=== PATIENT | male | born 1980 | race Caucasian/White ===

== ENCOUNTER 2020-04-14 14:28 | Outpatient (CLI) | payer SELFPAY ==
--- NOTE | ~2020-04-14 | XR_ITS ---
EXAMINATION: XR elbow RT min 3V INDICATION: Posterior and lateral epicondylitis TECHNIQUE: Four views of the right elbow are obtained. COMPARISON: None available FINDINGS: There is no fracture, dislocation, or subluxation. The bones, soft tissues, and joint space s are normal. IMPRESSION: 1. No acute osseous abnormality. Reviewed, dictated and finalized at location A. [employer]
[2020-04-14 14:41] LABS: Hematocrit 44.2 % (40.0-54.0); Hemoglobin 15.2 g/dL (14.0-18.0); Mean Corpuscular HGB Conc 34.4 g/dL (32.0-36.0); Mean Corpuscular Hemoglobin 34.7 pg (27.0-31.0); Mean Corpuscular Volume 100.9 fL (78.0-102.0); Mean Platelet Volume 9.8 fl (8.7-11.0); Platelet Count Result 155 K/mm3 (150-420); Red Blood Count 4.38 M/mm3 (4.70-6.10); Red Cell Distribution Width 12.2 % (11.6-14.4); White Blood Count 4.7 K/mm3 (4.8-10.8)
[2020-04-14 15:28] LABS: Alanine Aminotransferase 41 U/L (16-63); Albumin Level 4.3 g/dL (3.4-5.0); Alkaline Phosphatase 58 U/L (46-116); Anion Gap 9 mmol/L (8-16); Aspartate Amino Transferase 34 U/L (15-37); Bilirubin,Total 0.3 mg/dL (0.00-1.00); Blood Urea Nitrogen 10 mg/dL (7-18); Calcium 8.9 mg/dL (8.5-10.1); Carbon Dioxide 31 mmol/L (21-32); Chloride 105 mmol/L (98-108); Cholesterol 187 mg/dL (0-200); Estimated Glomerular Filt Rate > 60; Glucose 88 mg/dL (70-99); HDL Direct 80 mg/dL (40-60); LDL Cholesterol Calculated 92 mg/dL (<130); Osmolality Calculated 298 mOsm/kg (285-295); Sodium 145 mmol/L (136-145); Total Protein 7.5 g/dL (6.4-8.2); Triglycerides 77 mg/dL (0-150)
== END 2020-04-14 14:29 | disposition home or self-care (01) ==
LOC: CHSLAB 14:33
PROVIDERS: PCP Family Medicine; Visit Provider Family Medicine
DX: M77.10 Lateral epicondylitis, unspecified elbow (principal); Z00.00 Encounter for general adult medical examination without abnormal findings
CPT/HCPCS: 36415; 73080; 80053; 80061; 85027

== ENCOUNTER 2020-07-23 13:24 | Emergency (ER) | payer OTHER, SELFPAY ==
--- NOTE | 2020-07-23 13:31 | ED.HA ---
HPI - Headache General Chief Complaint: Headache Stated Complaint: migraine Source: patient and RN notes reviewed Mode of arrival: ambulatory History of Present Illness HPI Narrative: This is a 39-year-old male that presented to urgent care complaining of head discomfort. Patient notes that he was outside doing yard work on Monday and afterwards she developed ,what he describes as hot and burning sensation in his head. Patient is concerned of heat exhaustion. Patient denies any weakness, dizziness, confusion, upset stomach, tachycardia, muscle cramps, visual disturbance, double vision SOB, CP, palpitation, extremity numbness, lightheadedness, dizziness, constipation, diarrhea, chills, or fever. Patient notes that he stopped taking his sertraline. Informed patient that abrupt discontinuation of medication could cause possible seizures along with headache. Patient primary care physician is Dr. Wallace, patient was instructed to contact Dr. Wallace for follow-up labs. Patient agreed that he will contact Dr. Wallace. During my assessment patient did not have any facial paralysis, arm weakness or drift any or abnormal speech. MD elicited complaint: headache Related Data Allergies Allergy/AdvReac Type Severity Reaction Status Date / Time No Known Allergies Allergy Mild Verified 07/23/20 13:29 Review of Systems Review of Systems: Narrative: A 14 organ system Review of Systems was performed and pertinent positives included in the HPI, otherwise remaining ROS is negative. [facility] Past Medical History Medical History No active medical problems Surgical History Surgical History Hx of tonsillectomy Family History Family History (Updated 07/23/20 @ 13:32 by CATHRYN Santiago-C) Other Family history non-contributory Social History Social History Smoking packs per day: 0.5 Smoking cigarettes per day: 10.0 Years smoked: 22 Smoking pack-years: 11.00 Smoking status: Current every day smoker Tobacco type: cigarettes Alcohol intake: current Substance use: never Additional occupation/education comments: [employer] Gender identity (if verbalized by the patient): Male Exam Narrative: Exam Narrative: GENERAL: This is a well-nourished, well-developed patient, in no apparent distress. HEAD: normocephalic, atraumatic. EYES: PERRL. Sclera clear/white. Vision is grossly intact. EARS: External ears normal, auditory canals clear and without drainage, TMs normal without perforation. Hearing grossly intact. NOSE: External nose normal with no obvious nasal discharge, nares without redness, no rhinorrhea. THROAT: Mucous membranes moist, posterior pharynx clear. NECK: Neck supple, non-tender without lymphadenopathy, masses or thyromegaly. CARDIOVASCULAR: Regular rate and rhythm without murmurs, gallops, or rubs. RESPIRATORY: Clear to auscultation. Breath sounds equal bilaterally. No wheezes, rales, or rhonchi. GASTROINTESTINAL: Abdomen soft, non-tender, nondistended. Bowel sounds are active. No hepato-splenomegaly, or palpable masses. No guarding. SKIN: warm, intact with no suspicious lesions or rash, good texture and turgor. NEURO: awake, alert, and oriented to person, place and time. There were no obvious focal neurologic abnormalities. Steady gait EXTREMITIES: Normal range of motion. No edema. No calf tenderness. Negative Homans sign bilaterally. BACK: Nontender without deformity or crepitance. No flank tenderness. Course Course Emergency Course: Follow-up with his primary care physician further diagnostic testing Vital Signs Vital signs: Vital Signs Temperature 98.6 F 07/23/20 13:33 Pulse Rate 82 07/23/20 13:33 Respiratory Rate 18 07/23/20 13:33 Blood Pressure 142/89 H 07/23/20 13:33 Pulse Oximetry 100 07/23/20 13:33
[2020-07-23 13:33] VITALS: BP 142/89; PULSE 82; RESP 18; TEMP 37; O2SAT 100
== END 2020-07-23 14:11 | disposition home or self-care (01) ==
PROVIDERS: Emergency Provider Nurse Practitioner
DX: R51.9 Headache, unspecified (principal); F17.210 Nicotine dependence, cigarettes, uncomplicated
CPT/HCPCS: 99213; G0463

== ENCOUNTER 2020-07-24 11:59 | Outpatient (CLI) | payer OTHER, SELFPAY ==
--- NOTE | ~2020-07-24 | CT_ITS ---
EXAMINATION: CT brain wo con EXAM DATE: 07/24/2020 12:19 INDICATION:. Frontal headache for 5 days. TECHNIQUE: Spiral CT of the head was performed without contrast. Axial, coronal and sagittal images were reviewed. The dose-length product (DLP) for this examination was 605.33 mGy-cm. The exposure w as tailored according to patient size, and iterative reconstruction (ASIR) was used as additional dos e reduction technique. There is no prior study for comparison. FINDINGS: There is no acute intraparenchymal hemorrhage. No evidence of intraparenchymal brain mass lesion. No evidence of acute infarction. There is no mass effect or midline shift. The ventricles are normal in size. There are no extra-axial collections. There are no acute calvarial fractures. H ardware along the right orbital floor from fracture repair. Soft tissue is unremarkable. The visuali zed sinuses and mastoid air cells are well aerated. IMPRESSION: 1. No acute intracranial findings. Reviewed, dictated and finalized at location A.
== END 2020-07-24 12:00 | disposition home or self-care (01) ==
LOC: CHSIMG 12:04
PROVIDERS: PCP Family Medicine; Visit Provider Family Medicine
DX: R51.9 Headache, unspecified (principal)
CPT/HCPCS: 70450